=== PATIENT | female | born 1995 | race Caucasian/White ===

== ENCOUNTER 2018-06-11 19:10 | Outpatient (CLI) | payer OTHER ==
[2018-06-11] MEDS ORDERED: LACTATED RINGERS 1,000 ML ONE (21:31)
[2018-06-12] MEDS ORDERED: LACTATED RINGERS 1,000 ML ONE (02:52)
[2018-06-12] MEDS ORDERED: STADOL IV ONE (03:23)
[2018-06-12 05:36] VITALS: BP 119/73
== END 2018-06-12 08:00 | disposition home or self-care (01) ==
LOC: TRG 19:10 → LD 19:14 → TRG 19:34 → LD 06-12 01:39 → TRG 06-12 08:00
PROVIDERS: ATTEND Obstetrics & Gynecology
DX: O62.9 Abnormality of forces of labor, unspecified (principal); Z3A.38 38 weeks gestation of pregnancy
CPT/HCPCS: 96374; J0595; J7120

== ENCOUNTER 2018-06-13 18:21 | Inpatient (IN) | payer MEDICAID, OTHER ==
[2018-06-13] MEDS ORDERED: MINERAL OIL PO PRN (21:06)
[2018-06-13] MEDS ORDERED: BRETHINE SUB-Q PRN (21:06)
[2018-06-13] MEDS ORDERED: SUBLIMAZE IV PRN (21:06)
--- NOTE | 2018-06-13 21:23 | History and Physical Report ---
History of Present Illness Date of examination: 06/13/18 Date of admission: Labor Chief complaint: Contractions History of present illness: 22 year old presents to L&D in labor. Patient reports reglar contractions about every 7 to 8 minutes. Patient denies leaking of fluid or vaginal bleeding. Patient reports active movement. Patient has received care at [facility]; she brings records with her. LMP 09/18/2017. EDC 06/25/18. EDC based on LMP and confirmed by 8 week ultrasound. Patient reports an uncomplicated . labs are as follows: O+, antibody screen negative, rubella immune, hepatitis B surface antigen negative, HIV negative, RPR negative, chlamydia and gonorrhea negative, GBS negative, pap negative, declined quad screen. No sugar test result noted on chart. 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 denies: smoking, alcohol abuse, prescription drug abuse, IV drug use - Obstetrical History Expected Date of Delivery: 06/25/18 Actual Gestation: 38 Week(s) 2 Day(s) : 2 Para: 1 Hx # Term Pregnancies: 2 Number of Pregnancies: 0 Spontaneous Abortions: 0 Induced : 0 Number of Living Children: 1 Medications and Allergies Allergies Allergy/AdvReac Type Severity Reaction Status Date / Time No Known Allergies Allergy Verified 06/08/15 17:42 Home Medications Medication Instructions Recorded Confirmed Last Taken Type No Known Home Medications [No 06/09/15 06/09/15 Unknown History Reported Home Medications] Active Meds: Active Medications Ephedrine Sulfate (Ephedrine Sulfate) 10 mg IV Q2M PRN PRN Reason: Hypotension Fentanyl (Sublimaze) 100 mcg IV Q2H PRN PRN Reason: Labor Pain Lactated Ringer's (Lactated Ringers) 1,000 mls @ 125 mls/hr IV DIRECT VLADIMIR Oxytocin/Sodium Chloride (Pitocin/Ns 20 Unit/1000ml Drip) 20 units in 1,000 mls @ 125 mls/hr IV DIRECT VLADIMIR Lidocaine (Xylocaine 2%) 20 ml INFILTRATI ONCE ONE Stop: 04/27/19 21:07 Mineral Oil (Mineral Oil) 30 ml PO QHS PRN PRN Reason: Constipation Terbutaline Sulfate (Brethine) 0.25 mg SUB-Q ONCE PRN PRN Reason: Hyperstimulation/Hypertonicity Review of Systems All systems: negative (contractions) - Vital Signs Vital signs: Vital Signs Pulse BP 75 112/69 06/13/18 19:28 06/13/18 19:28 Temp Pulse Resp BP Pulse Ox 75 112/69 06/13/18 19:28 06/13/18 19:28 - Physical Exam Abdomen: Positive: normal appearance, soft. Negative: distention, tenderness, guarding, rigidity Genitourinary (Female): Positive: normal external genitalia, normal perenium. Negative: perineal/vulvar lesions Vagina: Positive: normal moisture Uterus: Positive: enlarged Anus/Rectum: Positive: normal perianal skin Extremities: Positive: normal. Negative: tenderness, edema - Obstetrical FHR: category 1 Uterine Contraction Monitor Mode: External Cervical Dilatation: 4 Cervical Effacement Percentage: 60 station: -3 Uterine Contraction Pattern: Irregular Uterine Contraction Intensity: Moderate Results All other labs normal. Assessment and Plan A: at 38 weeks, 2 days gestation. Active labor. GBS negative. P: Admit. Continuous EFM. EFW. Anticipate vaginal .
[2018-06-13] MEDS: LACTATED RINGERS 1,000 ML IV SCH (21:35)
[2018-06-13] MEDS ORDERED: XYLOCAINE 2% INFILTRATI ONE (22:00)
[2018-06-13] MEDS ORDERED: PITOCin/NS 20 UNIT/1000ML DRIP 20 UNITS/1,000 ML BAG IV SCH (22:00)
[2018-06-13 22:15] LABS: Hematocrit 33.5 % (30.3-42.9); Hemoglobin 11.2 gm/dl (10.1-14.3); Mean Corpuscular HGB Conc 33 % (30-34); Mean Corpuscular Volume 82 fl (79-97); Platelet Count 221 K/mm3 (140-440); Red Blood Count 4.11 M/mm3 (3.65-5.03); Red Cell Distribution Width 15.2 % (13.2-15.2)
--- NOTE | 2018-06-13 23:13 | Ultrasound Report ---
PROCEDURE: US OB FOLLOW UP TECHNIQUE: Real-time limited sonographic examination was performed for evaluation of amniotic fluid, weight for each fetus with image documentation (1 or more fetuses). HISTORY: EFW COMPARISONS: None . FINDINGS: MATERNAL Uterus: Within normal limits . Internal Os: closed . FETUS IUP: Single living intrauterine . Position: Vertex . Placental position: Anterior, without previa . Amniotic fluid volume: 4 quadrant amniotic fluid volume 10.3 cm Heart rate and rhythm: 149 BPM, Regular . anatomic survey: Not performed with today's study . MEASUREMENTS BPD: 8.9 cm . HC: 33.3 cm . AC: 35.2 cm . FL: 7.4 cm . Mean Gestational Age (composite criteria): 37 weeks 5 days . Ratio biometry: Normal . Estimated Weight: 3436 grams Interval growth: Appropriate . Estimated Due Date (earliest scan): 06/29/2018 . IMPRESSION: 1. Single living intrauterine gestation at approximately 37 weeks 5 days . 4 quadrant amniotic fluid volume 10.3 cm 2. EDC by US 06/29/2018 . This document is electronically signed by Renetta Reyez DO., June 13 2018 11:11:54 PM ET
--- NOTE | 2018-06-14 04:04 | Event Note ---
Date: 06/14/18 Temp. 97.9 orally. Several variable FHR decelerations noted. Normal FHR baseline 155 with moderate variability. Patient positioned in left lateral position. Oxygen applied per face mask at 10 LPM. Will observe closely for resolution.
--- NOTE | 2018-06-14 07:39 | Event Note ---
Date: 06/14/18 Patient requests epidural. Cervix checked; no cervical change from last exam, still 5 cm. Pitocin augmentation orders put in for patient. Discussed with patient use of Pitocin for augmentation of labor. Patient agreed to using Pitocin for augmentation of labor. Category 1 heart rate tracing.
[2018-06-14] MEDS ORDERED: PITOCin/NS 30 UNIT/500ML 30 UNITS/500 ML BAG IV SCH (08:00)
[2018-06-14] MEDS: LACTATED RINGERS 1,000 ML IV SCH ×3 (08:38→18:41)
[2018-06-14] MEDS ORDERED: NARCAN 2 MG/2 ML IV PRN (09:24)
--- NOTE | 2018-06-14 09:24 | Anesthesia Consultation ---
Anesthesia Consult and Med Hx Date of service: 06/14/18 - Airway Anesthetic Teeth Evaluation: Good ROM Head & Neck: Adequate Mental/Hyoid Distance: Adequate Mallampati Class: Class II Intubation Access Assessment: Probably Good - Pre-Operative Health Status ASA Pre-Surgery Classification: ASA2 Proposed Anesthetic Plan: Epidural, Spinal - Pulmonary Hx Asthma: No COPD: No Hx Pneumonia: No - Cardiovascular System Hx Hypertension: No - Central Nervous System Hx Seizures: No Hx Psychiatric Problems: No - Endocrine Hx Renal Disease: No Hx End Stage Renal Disease: No Hx Hypothyroidism: No Hx Hyperthyroidism: No - Hematic Hx Anemia: No Hx Sickle Cell Disease: No - Other Systems Hx Alcohol Use: No
[2018-06-14] MEDS: fentaNYL-BUPIV 2 MCG/ML-0.125% 200 MCG/100 ML BAG EPIDURAL SCH ×2 (13:49→22:00)
--- NOTE | 2018-06-14 20:15 | Event Note ---
Date: 06/14/18 SVE 7/95/-1. AROM to augment labor. Thin meconium fluid noted. Early FHR decelerations noted. Normal baseline FHR and moderate variability. Temp 98.8.
[2018-06-14] MEDS ORDERED: XYLOCAINE 2% INFILTRATI ONE ×2 (21:28→21:29)
--- NOTE | 2018-06-14 21:34 | Event Note ---
Date: 06/14/18 SVE 90.
[2018-06-14] MEDS ORDERED: CYTOTEC ONE (22:23)
[2018-06-14] MEDS ORDERED: NORCO 5/325 PO PRN (22:32)
[2018-06-14] MEDS ORDERED: TUCKS PAD TP PRN (22:32)
[2018-06-14] MEDS ORDERED: LANSINOH TP PRN (22:32)
[2018-06-14] MEDS ORDERED: MILK OF MAGNESIA PO PRN (22:32)
[2018-06-14] MEDS ORDERED: DULCOLAX PR PRN (22:32)
[2018-06-14] MEDS ORDERED: CYTOTEC PR ONE (22:42)
--- NOTE | 2018-06-14 22:47 | Procedure Note ---
OB Delivery Note - Delivery Date of Delivery: 06/14/18 Surgeon: SETH JEFFRIES Estimated blood loss: other (400 cc) - Vaginal Delivery presentation: vertex Delivery position: OA Intrapartum events: hemorrhage Delivery induction: none Delivery augmentation: rupture of membranes, pitocin Delivery monitor: external FHT, external uterine Route of delivery: Delivery placenta: spontaneous Delivery cord: 3 umbilical vessels Episiotomy: none Delivery laceration: none Anesthesia: epidural Delivery comments: Spontaneous vaginal delivery at 22:11 of liveborn male infant weighing 7 lb. 10 oz. over intact perineum with apgars of 8/9. Thin meconium fluid. Baby vigorous at and bulb suctioned. Baby placed skin to skin with mom immediately after . Spontaneous cry and respirations. 3 vessel cord double clamped and cut and baby taken to radiant warmer for further suctioning. Cord blood obtained. Spontaneous delivery of intact placenta and membranes at 22:16. EBL 400 cc. Pitocin to IV fluids after delivery of placenta. Fundus firm and midline. Vaginal sweep negative. No lacerations noted. Sponge count correct. Mother and baby stable in birthing room.
[2018-06-14] MEDS ORDERED: SODIUM CHLORIDE FLUSH SYRINGE 10 ML IV PRN (23:00)
[2018-06-15] MEDS: IBUPROFEN PO SCH ×5 (00:18→23:33)
[2018-06-15 01:10] LABS: Hematocrit 30.6 % (30.3-42.9); Hemoglobin 10.1 gm/dl (10.1-14.3)
[2018-06-15 10:39] LABS: Hematocrit 26.6 % (30.3-42.9); Hemoglobin 8.8 gm/dl (10.1-14.3)
--- NOTE | 2018-06-15 11:06 | Progress Note ---
Assessment and Plan - Patient Problems (1) Status post normal vaginal delivery Current Visit: Yes Status: Acute Plan to address problem: PPD 1 - stable Continue routine PP orders Discharge to home 06/16/18 Follow-up at [facility] as needed or in 6 weeks for exam (2) Anemia due to blood loss, acute Current Visit: Yes Status: Acute Plan to address problem: Asymptomatic Continue iron therapy Subjective - Subjective Date of service: 06/15/18 Principal diagnosis: PPD #1; s/p Interval history: see H&P, Event Notes and OB Delivery Procedure Note Patient reports: appetite normal, voiding normally, pain well controlled, ambulating normally, no dizzy ambulation [place]: doing well, nursing well Objective - Vital Signs Latest vital signs: Vital Signs Temp Pulse Resp BP BP Pulse Ox 06/15/18 08:17 98.1 F 80 20 98/61 97 06/15/18 05:06 18 06/15/18 04:22 99.2 F 87 18 105/47 92 06/15/18 00:10 98.6 F 81 16 114/67 06/14/18 23:05 71 115/65 06/14/18 22:50 75 112/61 06/14/18 22:35 79 118/63 06/14/18 22:21 81 116/55 06/14/18 22:07 94 H 148/72 06/14/18 21:33 83 133/69 06/14/18 21:18 74 156/80 06/14/18 21:11 92 H 99 06/14/18 21:06 87 99 06/14/18 21:02 78 127/81 06/14/18 21:01 83 99 06/14/18 20:56 72 98 06/14/18 20:51 70 98 06/14/18 20:47 70 123/74 06/14/18 20:46 78 98 06/14/18 20:41 79 98 06/14/18 20:36 70 98 06/14/18 20:32 72 120/71 06/14/18 20:31 71 98 06/14/18 20:26 73 98 06/14/18 20:21 70 99 06/14/18 20:17 70 116/67 06/14/18 20:16 70 98 06/14/18 20:11 70 99 06/14/18 20:06 71 98 06/14/18 20:02 68 116/65 06/14/18 20:01 67 99 06/14/18 20:00 98.8 F 06/14/18 19:56 67 98 06/14/18 19:51 76 96 06/14/18 19:48 65 145/85 06/14/18 19:46 70 97 06/14/18 19:41 70 96 06/14/18 19:36 67 97 06/14/18 19:32 69 123/80 06/14/18 19:31 68 97 06/14/18 19:26 67 96 06/14/18 19:21 68 96 06/14/18 19:18 66 119/76 06/14/18 19:16 67 96 06/14/18 19:11 68 97 06/14/18 19:06 69 97 06/14/18 19:03 66 121/72 06/14/18 19:01 72 95 06/14/18 18:56 71 95 06/14/18 18:51 66 96 06/14/18 18:48 64 125/74 06/14/18 18:46 68 96 06/14/18 18:41 69 96 06/14/18 18:36 72 95 06/14/18 18:33 70 118/75 06/14/18 18:31 69 98 06/14/18 18:26 74 96 06/14/18 18:21 69 96 06/14/18 18:17 65 137/80 06/14/18 18:16 69 95 06/14/18 18:11 69 96 06/14/18 18:06 71 96 06/14/18 18:02 67 127/75 06/14/18 18:01 70 96 06/14/18 17:56 70 95 06/14/18 17:51 71 96 06/14/18 17:49 67 127/75 06/14/18 17:46 73 96 06/14/18 17:41 69 96 06/14/18 17:36 68 96 06/14/18 17:33 69 139/81 06/14/18 17:31 72 97 06/14/18 17:26 86 96 06/14/18 17:21 68 95 06/14/18 17:18 67 142/76 06/14/18 17:16 70 95 06/14/18 17:11 69 95 06/14/18 17:06 66 96 06/14/18 17:02 65 150/79 06/14/18 17:01 67 95 06/14/18 16:56 65 95 06/14/18 16:51 65 96 06/14/18 16:49 67 143/77 06/14/18 16:46 70 95 06/14/18 16:41 70 96 06/14/18 16:36 72 95 06/14/18 16:33 65 145/75 06/14/18 16:31 68 95 06/14/18 16:27 70 145/84 06/14/18 16:26 65 97 06/14/18 16:21 67 96 06/14/18 16:19 66 158/84 06/14/18 16:16 66 95 06/14/18 16:11 69 97 06/14/18 16:06 73 97 06/14/18 16:02 67 142/88 06/14/18 16:01 70 97 06/14/18 15:56 70 97 06/14/18 15:51 67 96 06/14/18 15:47 70 120/75 06/14/18 15:46 65 94 06/14/18 15:41 65 94 06/14/18 15:36 64 95 06/14/18 15:32 64 121/71 06/14/18 15:31 65 95 06/14/18 15:26 63 95 06/14/18 15:21 63 96 06/14/18 15:17 62 121/68 06/14/18 15:16 63 95 06/14/18 15:11 62 95 06/14/18 15:06 65 95 06/14/18 15:02 62 124/71 06/14/18 15:01 62 96 06/14/18 14:56 62 95 06/14/18 14:51 66 95 06/14/18 14:47 60 113/61 06/14/18 14:46 58 L 96 06/14/18 14:41 61 97 06/14/18 14:36 60 96 06/14/18 14:32 62 119/74 06/14/18 14:31 63 97 06/14/18 14:26 64 96 06/14/18 14:21 61 97 06/14/18 14:17 60 115/65 06/14/18 14:16 64 94 06/14/18 14:11 59 L 95 06/14/18 14:06 67 95 06/14/18 14:01 71 109/64 96 06/14/18 13:58 67 117/70 06/14/18 13:56 73 97 06/14/18 13:55 73 108/67 89 06/14/18 13:52 63 111/62 06/14/18 13:51 66 91 06/14/18 13:49 69 110/68 06/14/18 13:46 65 119/72 92 06/14/18 13:43 66 118/71 06/14/18 13:41 67 94 06/14/18 13:40 70 112/62 06/14/18 13:37 65 118/63 06/14/18 13:36 68 96 06/14/18 13:34 88 119/78 06/14/18 13:33 67 94 06/14/18 13:31 75 116/76 96 06/14/18 13:26 80 97 06/14/18 13:22 75 94 06/14/18 13:21 72 97 06/14/18 12:55 63 121/68 06/14/18 12:40 68 92/52 Intake and Output 06/14/18 06/15/18 06/15/18 23:59 07:59 15:59 Intake Total 878.667 300 480 Output Total 500 Balance 878.667 -200 480 Intake: IV 878.667 Lactated Ringers 1,000 ml 866.667 @ 125 mls/hr IV DIRECT VLADIMIR Rx#:[id number] PITOCin/NS 30 UNIT/500ML 12 30 units In 500 ml @ Per Protocol IV TITR VLADIMIR Rx#: [id number] Oral 480 Intake, Free Water 300 Output: Urine 500 Void 500 Other: Total, Intake Amount 480 Total, Output Amount 200 # Voids Void 1 # Bowel Movements 1 Estimated Blood Loss 400 - Exam Cardiovascular: Present: Regular rate Lungs: Present: Clear to auscultation Abdomen: Present: normal appearance, soft Vulva: both: normal Uterus: Present: fundal height at umbilicus Extremities: Present: normal Comments: small lochia - Labs Labs: Abnormal lab results 06/15/18 Range/Units 10:03 Hgb 8.8 L (10.1-14.3) gm/dl Hct 26.6 L (30.3-42.9) %
--- NOTE | 2018-06-15 11:09 | Discharge Summary ---
Providers - Providers Date of Admission: 06/13/18 23:21 Date of discharge: 06/16/18 Attending physician: RONNY RODRIGUES MD Primary care physician: RONNY RODRIGUES MD Hospitalization Reason for admission: active labor, IUP at term Delivery: Episiotomy: none Laceration: none Other procedures: none complications: none Discharge diagnosis: IUP at term delivered [place] baby: male Hospital course: Uncomplicated Condition at discharge: Stable Disposition: SC-01 TO HOME OR SELFCARE - Discharge Diagnoses (1) Status post normal vaginal delivery Status: Acute (2) Anemia due to blood loss, acute Status: Acute Comment: Asymptomatic Continue iron therapy Plan - Discharge Medications Prescriptions: Ferrous Sulfate [Feosol 325 MG tab] 325 mg PO BID #60 tablet - Provider Discharge Summary Activity: routine, no sex for 6 weeks, no heavy lifting 4 weeks, no strenuous exercise Diet: routine Instructions: routine Additional instructions: [] Smoking cessation referral if applicable(refer to patient education folder for contact #) [] Refer to [facility] Booklet Call your doctor immediately for: * Fever > 100.5 * Heavy vaginal bleeding ( >1 pad per hour) * Severe persistent headache * Shortness of breath * Reddened, hot, painful area to leg or breast * Drainage or odor from incision. * Keep incision clean and dry at all times and follow doctor's instructions regarding bathing/showering - Follow up plan Follow up: RONNY RODRIGUES MD [Primary Care Provider] - 6 Weeks (Follow-up at [facility] as needed or in 6 weeks for exam)
[2018-06-15] MEDS: FEOSOL PO SCH ×2 (18:09→21:45)
[2018-06-15] MEDS: COLACE PO SCH ×2 (18:09→21:45)
[2018-06-16] MEDS: IBUPROFEN PO SCH (05:18)
[2018-06-17 01:29] VITALS: BP 0/0
== END 2018-06-16 13:30 | disposition home or self-care (01) | DRG 806 ==
LOC: TRG 18:21 → LD 23:21 → OB 06-14 23:48
PROVIDERS: ADMIT Obstetrics & Gynecology; ATTEND Obstetrics & Gynecology
PROC: 10907ZC Drainage of Amniotic Fluid, Therapeutic from Products of Conception, Via Natural or Artificial Opening (ICD-10-PCS; 2018-06-13)
PROC: 10E0XZZ Delivery of Products of Conception, External Approach (ICD-10-PCS; principal; 2018-06-14)
PROC: 3E0R3BZ Introduction of Anesthetic Agent into Spinal Canal, Percutaneous Approach (ICD-10-PCS; 2018-06-14)
PROC: 00HU33Z Insertion of Infusion Device into Spinal Canal, Percutaneous Approach (ICD-10-PCS; 2018-06-14)
DX: O76 Abnormality in fetal heart rate and rhythm complicating labor and delivery (principal); D62 Acute posthemorrhagic anemia; Z37.0 Single live birth; O72.1 Other immediate postpartum hemorrhage; Z3A.38 38 weeks gestation of pregnancy; O77.0 Labor and delivery complicated by meconium in amniotic fluid; O90.81 Anemia of the puerperium
CPT/HCPCS: 36415; 76816; 83036; 85014; 85018; 85027; 86592; 86850; 86900; 86901; G0378; A6250; J2590; J7120